=== PATIENT | male | born 1985 | race Caucasian/White ===

== ENCOUNTER 2016-06-30 01:30 | Emergency (ER) | payer BC, OTHER ==
[2016-06-30 01:36] VITALS: BP 124/75; PULSE 65; RESP 18; TEMP 98.1
[2016-06-30] MEDS ORDERED: KETOROLAC 60 MG/2 ML VIAL IM STA (01:45)
[2016-06-30] MEDS ORDERED: HYDROcodone/APAP 5-325MG 1 EACH TAB PO STA (01:45)
--- NOTE | 2016-06-30 01:55 | ED ---
General Adult HPI - General Chief complaint: Abdominal Pain Stated complaint: Groin Pain Time Seen by Provider: 06/30/16 01:41 Source: patient, RN notes reviewed, old records reviewed Mode of arrival: ambulatory Limitations: no limitations - History of Present Illness Initial comments: 22-year-old male here for evaluation. The patient presents for evaluation of possible kidney stone. Patient has right-sided flank pain radiating to groin. Recently diagnosed with kidney stone. Patient also states he says blood in the stool, no fevers, no nausea or vomiting. No diarrhea no travel history - Related Data Home Medications Medication Instructions Recorded Confirmed No Known Home Medications [No 06/30/16 06/30/16 Known Home Medications] Allergies Allergy/AdvReac Type Severity Reaction Status Date / Time No Known Allergies Allergy Verified 06/30/16 01:36 Review of Systems ROS Statement: Those systems with pertinent positive or pertinent negative responses have been documented in the HPI. ROS Other: All systems not noted in ROS Statement are negative. Past Medical History Additional Past Medical History / Comment(s): possible ms, ddd, ulcers, kidney stones History of Any Multi-Drug Resistant Organisms: None Reported Past Surgical History: Ear Surgery Past Psychological History: No Psychological Hx Reported Smoking Status: Current some day smoker Past Alcohol Use History: None Reported Past Drug Use History: None Reported General Exam Limitations: no limitations General appearance: alert, in no apparent distress Head exam: Present: atraumatic, normocephalic, normal inspection Eye exam: Present: normal appearance, PERRL, EOMI. Absent: scleral icterus, conjunctival injection, periorbital swelling ENT exam: Present: normal exam, mucous membranes moist Neck exam: Present: normal inspection. Absent: tenderness, meningismus, lymphadenopathy Respiratory exam: Present: normal lung sounds bilaterally. Absent: respiratory distress, wheezes, rales, rhonchi, stridor Cardiovascular Exam: Present: regular rate, normal rhythm, normal heart sounds. Absent: systolic murmur, diastolic murmur, rubs, gallop, clicks GI/Abdominal exam: Present: soft, normal bowel sounds. Absent: distended, tenderness, guarding, rebound, rigid Extremities exam: Present: normal inspection, full ROM, normal capillary refill. Absent: tenderness, pedal edema, joint swelling, calf tenderness Back exam: Present: normal inspection Neurological exam: Present: alert, oriented X3, CN II-XII intact Psychiatric exam: Present: normal affect, normal mood Skin exam: Present: warm, dry, intact, normal color. Absent: rash Course Vital Signs 06/30/16 01:34 Temperature 98.1 F Pulse Rate 65 Respiratory 18 Rate Blood Pressure 124/75 O2 Sat by Pulse 98 Oximetry - Reevaluation(s) Reevaluation #1: 06/30/16 01:48 Patient does have significant improvement in pain Medical Decision Making - Medical Decision Making 22 male here with positive [place], we'll give her follow-up for urology, no urinary tract infection, can be discharged home - Radiology Data Radiology results: report reviewed (Computed tomography scan is positive for kidney stones), image reviewed Disposition Clinical Impression: Kidney stones Disposition: HOME SELF-CARE Condition: Good Instructions: Kidney Stones (ED) Referrals: Trevor Bedolla MD [Primary Care Provider] - 1-2 days Homero Rodgers MD [STAFF PHYSICIAN] - 1-2 days
[2016-06-30 02:14] LABS: Appearance,Urine Clear (Clear); Bilirubin,Urine Negative (Negative); Glucose,Urine (UA) Negative (Negative); Ketones,Urine Negative (Negative); Leukocyte Esterase,Urine Trace (Negative); Mucus,Urine Occasional /hpf; Nitrite,Urine Negative (Negative); Particle Count 2359; Protein,Urine Trace (Negative); RBC,Urine >182 /hpf (0-5); Specific Gravity,Urine 1.023 (1.001-1.035); UA Billing (MACRO vs. MICRO) MICRO; WBC,Urine 16 /hpf (0-5)
--- NOTE | 2016-06-30 02:24 | CT ---
EXAMINATION TYPE: CT abdomen pelvis wo con DATE OF EXAM: 06/30/2016 2:05 AM COMPARISON: NONE HISTORY: Kidney pain and pain when urinating CT DLP: 235.60 mGycm Automated exposure control for dose reduction was used. TECHNIQUE: Helical acquisition of images was performed from the lung bases through the pelvis. FINDINGS: Lung bases are clear. There is no pleural effusion. Liver spleen pancreas gallbladder appear normal. Bile ducts are not dilated. There is no adrenal mass . Kidneys have normal size and contour. There is no hydronephrosis. There is no retroperitoneal adeno richy. Ureters are nondilated. Bladder distends smoothly. There are calcifications in the pelvis that are probably phleboliths. Appendix is not seen. There is no sign of appendicitis. I see no intestina l wall thickening. There are no dilated loops. Lumbar spine is intact. IMPRESSION: NO SIGN OF ACUTE ABDOMEN AND PELVIS. APPENDIX IS NOT SEEN. NO RENAL STONE OR OBSTRUCTION. PELVIC CALC IFICATIONS CONSISTENT WITH PHLEBOLITHS.
== END 2016-06-30 02:49 | disposition home or self-care (01) ==
LOC: EC 01:30
DX: N20.0 Calculus of kidney (principal); F17.200 Nicotine dependence, unspecified, uncomplicated
CPT/HCPCS: 99284; 96372; 81001; 87086; 74176; J1885; 87077; 87186